=== PATIENT | female | born 1970 | race Two or more races ===

== ENCOUNTER 2018-01-06 06:00 | Emergency (ER) | payer OTHER ==
[~2018-01-06] VITALS: Ht 154.9 cm; Wt 58.1 kg
[2018-01-06] MEDS ORDERED: ZYRTEC10 M3 PO (09:13)
[2018-01-06] MEDS ORDERED: MEDROLPACK PO (09:13)
== END 2018-01-06 11:43 | disposition home or self-care (01) ==
LOC: ER 06:00
DX: L50.8 Other urticaria (principal)

== ENCOUNTER 2022-12-11 14:46 | Emergency (ER) | payer OTHER ==
[~2022-12-11] VITALS: Ht 149.9 cm; Wt 56.2 kg
[~2022-12-11 14:46] MED LIST: MEDROLPACK PO; ZYRTEC10 M3 PO
== END 2022-12-11 23:35 | disposition home or self-care (01) ==
LOC: ER 14:46
DX: K57.32 Diverticulitis of large intestine without perforation or abscess without bleeding (principal)

== ENCOUNTER 2023-09-03 20:26 | Emergency (ER) | payer OTHER ==
[~2023-09-03] VITALS: Ht 149.9 cm; Wt 54.4 kg
[2023-09-03] MEDS ORDERED: TETANUS & DIPHTHERIA TOX,ADULT 0.5 ML VIAL IM STA (22:04)
[2023-09-03] MEDS ORDERED: CLINDAMYCIN PHOSPHATE 150 MG/ML (300mg) IM STA (22:05)
[2023-09-03] MEDS ORDERED: AMOX-CLAV 875-1 EAC1 PO (22:21)
== END 2023-09-03 22:37 | disposition home or self-care (01) ==
LOC: ER 20:26
DX: S31.815A Open bite of right buttock, initial encounter (principal); W54.0XXA Bitten by dog, initial encounter; Y93.89 Activity, other specified; Y92.89 Other specified places as the place of occurrence of the external cause; Y99.9 Unspecified external cause status

== ENCOUNTER 2025-02-25 10:50 | Emergency (ER) | payer OTHER ==
[~2025-02-25] VITALS: Ht 154.9 cm; Wt 58.1 kg
[~2025-02-25 10:50] MED LIST changes: +AMOX-CLAV 875-1 EAC1 PO
[2025-02-25] MEDS ORDERED: CELEBREX200MG PO (11:25)
[2025-02-25] MEDS ORDERED: 0.9 % SODIUM CHLORIDE 500 ML IV ONE (12:30)
[2025-02-25 13:00] LABS: BASO % 0.7 % (0.1-1.2); EOS # 0.13 (0.04-0.54); EOS % 1.8 % (0.7-7.0); LYMPH # 2.49 (1.18-3.74); LYMPH % 34.9 % (19.3-53.1); MEAN PLATELET VOLUME 9.80 fl (9.4-12.4); MONO # 0.49 (0.24-0.82); MONO % 6.9 % (4.7-12.5); NEUT # 3.96 (1.56-6.13); NEUT % 55.6 % (34.0-71.1); RED CELL DISTRIBUTION WIDTH 12.1 % (11.6-14.4)
[2025-02-25 13:33] LABS: ALT/SGPT 61.0 U/L (12-78); AST/SGOT 32.0 U/L (15-37); BILIRUBIN TOTAL 0.46 mg/dL (0.3-1.2); BUN CREA RATIO 17.0 (7.0-25.0); CREATININE SERUM 0.89 mg/dL (0.55-1.02); GFR 66.35; GLOBULINA 3.8 G/DL (2.4-3.5); GLUCOSE FASTING 74.0 mg/dL (65-100); OSMOLALITY SERUM 281.0 MOSM/KG (275-295)
[2025-02-25] MEDS ORDERED: NEURONTIN300 MG PO (15:22)
== END 2025-02-25 15:39 | disposition home or self-care (01) ==
LOC: ER 10:51
PROVIDERS: General Practice
DX: R60.0 Localized edema (principal); R20.0 Anesthesia of skin

== ENCOUNTER 2025-05-14 12:02 | Emergency (ER) | payer OTHER ==
[~2025-05-14] VITALS: Ht 154.9 cm; Wt 58.1 kg
[~2025-05-14 12:02] MED LIST changes: +CELEBREX200MG PO; +NEURONTIN300 MG PO
[2025-05-14] MEDS ORDERED: ORPHENADRINE CITRATE 30 MG/ML AMPUL IM ONE (16:00)
[2025-05-14] MEDS ORDERED: ACETAMINOPHEN 500 MG GEL..CAP PO ONE ×2 (16:00→16:07)
[2025-05-14] MEDS ORDERED: ORPHENADRINE CITRATE 30 MG/ML AMPUL ONE (16:07)
[2025-05-14 16:46] LABS: BASO % 0.5 % (0.1-1.2); EOS # 0.11 (0.04-0.54); EOS % 1.8 % (0.7-7.0); LYMPH # 2.48 (1.18-3.74); LYMPH % 39.7 % (19.3-53.1); MEAN PLATELET VOLUME 9.80 fl (9.4-12.4); MONO # 0.27 (0.24-0.82); MONO % 4.3 % (4.7-12.5); NEUT # 3.34 (1.56-6.13); NEUT % 53.4 % (34.0-71.1); RED CELL DISTRIBUTION WIDTH 12.1 % (11.6-14.4)
[2025-05-14 17:12] LABS: ALT/SGPT 46.0 U/L (12-78); AST/SGOT 32.0 U/L (15-37); BILIRUBIN TOTAL 0.46 mg/dL (0.3-1.2); BUN CREA RATIO 19.0 (7.0-25.0); CREATININE SERUM 0.88 mg/dL (0.55-1.02); GFR 67.22; GLOBULINA 3.5 G/DL (2.4-3.5); GLUCOSE FASTING 174.0 mg/dL (65-100); OSMOLALITY SERUM 287.0 MOSM/KG (275-295)
[2025-05-14] MEDS ORDERED: DICLOFENAC SODI50 MG PO (19:46)
[2025-05-14] MEDS ORDERED: DEXAMETHASONE SODIUM PHOSPHATE 4 MG/ML VIAL IM ONE (20:00)
[2025-05-14] MEDS ORDERED: DEXAMETHASONE SODIUM PHOSPHATE 4 MG/ML VIAL ONE (20:02)
== END 2025-05-14 20:14 ==
LOC: ER 12:03
PROVIDERS: General Practice
DX: M65.28 Calcific tendinitis, other site (principal); M25.552 Pain in left hip; R42 Dizziness and giddiness; R51.9 Headache, unspecified; M19.90 Unspecified osteoarthritis, unspecified site